=== PATIENT | female | born 1945 | race Caucasian/White ===

== ENCOUNTER 2020-12-29 10:28 | Day surgery (SDC) | payer MEDICARE, OTHER ==
[~2020-12-29] VITALS: Ht 152.4 cm; Wt 85.9 kg
[~2020-12-29 10:28] MED LIST: CITA20 PO; DYAZIDE 37.5-21 EACH PO; FLUTICASONE-SA1 EAC2 INH; IBUP200 PO; MAGNESIA; MAGNESIUM PO; PANT40 PO; POTA10T PO; PROBIOTIC1 EAC1; TRIHYD5075; VERA120 PO; VIT1CAPS12 PO
--- NOTE | 2020-12-29 13:45 | NUR ---
12/29/20 1345 Christie Sullivan NO SPECIMEN PER SURGEON. RBVO Cyndee SULLIVAN RN
--- NOTE | 2020-12-29 16:16 | NUR ---
PT A&OX4, VSS, S/P L TKA, SURGICAL DRESSING/SARAI WRAP DRY/INTACT, WIGGLES TOES/ MOVES FEET, REPOSITIONS SELF WELL. CAROLYN PO. DENIES PAIN AT THIS TIME.
[2020-12-30 04:39] LABS: BASOPHILS ABSOLUTE AUTO 0.02 K/mm3 (0.00-0.23); BASOPHILS PERCENT AUTO 0 % (0-2); EOSINOPHILS ABSOLUTE AUTO 0.03 K/mm3 (0.00-0.68); EOSINOPHILS PERCENT AUTO 0 % (0-6); Hematocrit 35.2 % (33.0-51.0); Hemoglobin 11.2 g/dL (11.5-16.0); IMMATURE GRAN ABSOLUTE AUTO 0.04 K/mm3 (0.00-0.10); IMMATURE GRAN PERCENT AUTO 1 % (0-1); LYMPHOCYTES ABSOLUTE AUTO 1.33 K/mm3 (0.84-5.20); LYMPHOCYTES PERCENT AUTO 18 % (21-46); MONOCYTES ABSOLUTE AUTO 0.84 K/mm3 (0.16-1.47); MONOCYTES PERCENT AUTO 11 % (4-13); Mean Corpuscular HGB 26.9 pg (26.0-34.0); Mean Corpuscular HGB Conc 31.8 g/dL (31.5-36.5); Mean Corpuscular Volume 85 fL (80-100); Mean Platelet Volume 10.4 fL (9.1-12.4); NEUTROPHILS ABSOLUTE AUTO 5.19 K/mm3 (1.96-9.15); NEUTROPHILS PERCENT AUTO 70 % (41-73); Platelet Count 224 K/mm3 (150-400); RDW Coefficient Variation 13.3 % (11.7-14.2); RDW Standard Deviation 41.7 fL (35.1-46.3); Red Blood Cell Count 4.16 M/mm3 (3.80-5.20); White Blood Cell Count 7.45 K/mm3 (4.00-11.30)
--- NOTE | 2020-12-30 04:50 | NUR ---
SHIFT SUMMARY POD1 L TKA WITH DR. MCGARRY. PT AOX4. VSS. PT REPORTS MILD-MOD PAIN ON LEFT KNEE. PAIN MANAGED WITH TORADOL, TYLENOL, AND 10MG KAMAR. L KNEE WITH SARAI WRAP, CDI WITH POLAR PACK IN PLACED. PT DENIES NUMBNESS AND TINGLING SENSAITON. USE BSC. VOIDING WELL WITHOUT ISSUES. TOLERATING PO INTAKE DENIES NAUSEA AND VOMITING. ABX ADMINISTERED. TOLERATING AMBULATION TO BSC. PT ALSO DENIES DIZZINESS. CALL LIGHT WITHIN REACH. WILL PROVIDE REPORT TO ONCOMING NURSE.
[2020-12-30 05:25] LABS: Bun/Creatinine Ratio 15.8 (12.0-20.0); Calcium, Blood 8.8 mg/dL (8.5-10.1); Creatinine, Blood 1.2 mg/dL (0.40-1.00); Magnesium, Blood 1.8 mg/dL (1.6-2.4); Potassium, Blood 3.3 mmol/L (3.5-5.5)
--- NOTE | 2020-12-30 06:28 | NUR ---
FOR SAFETY REASONS.
--- NOTE | 2020-12-30 11:46 | NUR ---
DISCHARGE SUMMARY PT A&OX4, VSS, VOIDING, TOLERATING PO, AMBULATING W/SBA/FWW/GB. DC INSTRUCTIONS PROVIDED. PT REP UNDERSTANDING THOSE INSTRUCTIONS INCLUDING FU WITH ORTHO SURG 2 WKS, DRESSING CHANGES, PHYSICAL THERAPY OUTPT, SHORT FREQ AMB WITH REST/ELEVATION AND ICE AT REST. PT LEFT FLOOR VIA WC WITH BROKE WORKER TO GO HOME WITH , WITH ALL PERSONAL POSSESSIONS INCLUDING DC PACKET, 2 AQUACEL; PT REP HAVING LOVENOX, PAIN MED AND ABX MEDS AT HOME. IV DC'D.
== END 2020-12-30 11:00 | disposition home or self-care (01) ==
LOC: ORSCMMR 10:28 → ORD 14:00 → SURS 15:01 → ORSCMMR 12-30 11:00
PROVIDERS: Orthopaedic Surgery
PROC: 8E0YXBZ Computer Assisted Procedure of Lower Extremity (ICD-10-PCS; principal; 2020-12-29 14:00)
PROC: 0SRD0J9 Replacement of Left Knee Joint with Synthetic Substitute, Cemented, Open Approach (ICD-10-PCS; principal; 2020-12-29 14:00)
DX: M17.12 Unilateral primary osteoarthritis, left knee (principal); I10 Essential (primary) hypertension; J44.9 Chronic obstructive pulmonary disease, unspecified; Z87.891 Personal history of nicotine dependence; Z79.899 Other long term (current) drug therapy; E66.01 Morbid (severe) obesity due to excess calories; Z68.37 Body mass index [BMI] 37.0-37.9, adult
CPT/HCPCS: 36415; 73560-LT; 80048; 83735; 85025; 97110; 97116; 97162; A9270; C1713; C1776; J0171; J0735; J1650; J1885; J2250; J2704; J2795; J3010; J3370; J7120

== ENCOUNTER 2021-10-05 11:26 | Day surgery (SDC) | payer MEDICARE, OTHER ==
[~2021-10-05] VITALS: Ht 152.4 cm; Wt 73.1 kg
--- NOTE | 2021-10-05 13:44 | NUR ---
10/05/21 1343 Jeanne Alvarez NO ANESTHESIOLOGIST INVOLVED.
== END 2021-10-05 14:48 | disposition home or self-care (01) ==
LOC: ORSCSDS 11:26
PROVIDERS: Otolaryngology
PROC: 03BT0ZX Excision of Left Temporal Artery, Open Approach, Diagnostic (ICD-10-PCS; principal; 2021-10-05 13:00)
DX: M31.6 Other giant cell arteritis (principal); J44.9 Chronic obstructive pulmonary disease, unspecified; E66.9 Obesity, unspecified; Z68.31 Body mass index [BMI] 31.0-31.9, adult; Z79.899 Other long term (current) drug therapy
CPT/HCPCS: 88305; 88313; J2250; J3010

== ENCOUNTER 2024-01-21 06:11 | Day surgery (SDC) | payer MEDICARE, OTHER ==
[~2024-01-21] VITALS: Ht 152.4 cm; Wt 81.7 kg
[2024-01-21] VITALS (10 sets, daily range): BP systolic 113–154; BP diastolic 54–106
[2024-01-21] MEDS ORDERED: CeFAZolin Sodium 2,000 MG in NS 100 ML IV SCH (06:20)
[2024-01-21] MEDS ORDERED: Lactated Ringer's 1,000 ML IV SCH (06:20)
[2024-01-21] MEDS ORDERED: GABA300 PO (06:39)
[2024-01-21] MEDS ORDERED: CeFAZolin Sodium 2,000 MG VIAL ONE (06:40)
[2024-01-21] MEDS ORDERED: NS 100 ML IV ONE (06:40)
[2024-01-21] MEDS ORDERED: Ondansetron HCl 2 MG / ML 2ML Vial ONE (07:01)
[2024-01-21] MEDS ORDERED: Phenylephrine HCl 100 MCG/ML-NS 10MLSYR (1MG/10ML) ONE (07:01)
[2024-01-21] MEDS ORDERED: FentaNYL Citrate 50 MCG/ML 2 ML Injection ONE ×2 (07:01→09:52)
[2024-01-21] MEDS ORDERED: propofoL 20 ML IV ONE (07:01)
[2024-01-21] MEDS ORDERED: Dexamethasone Sod Phos 10 MG/ML 1ML VIAL ONE (07:01)
[2024-01-21] MEDS ORDERED: Rocuronium Bromide 10 MG/ML 5ML Injection IV ONE (07:01)
[2024-01-21] MEDS ORDERED: Bupivacaine 0.5% HCl 5 MG/ML 30MLVIAL ONE (07:04)
--- NOTE | 2024-01-21 07:06 | NUR ---
History, Chart, Medications and Allergies reviewed before start of procedure. Pre-Op teaching done. Pt verbalizes understanding. Ambulatory in Day Surgery WITH STEADY GAIT. PT BELONGINGS PLACED UNDER GURNEY.
[2024-01-21] MEDS ORDERED: Sugammadex Sodium 200 MG/2ML SDV (100 MG/ML) ONE (07:41)
[2024-01-21] MEDS ORDERED: ePHEDrine Sulfate 50 MG/ML 1ML Injection ONE (07:47)
--- NOTE | 2024-01-21 08:35 | NUR ---
01/21/24 0835 Merle Chen ISOVUE 300 (30MLS) POURED ONTO STERILE FIELD FOR USE DURING CHOLANGIOGRAM
[2024-01-21] MEDS ORDERED: HYDROcodone 5-APAP 325 TAB PO PRN (09:30)
--- NOTE | 2024-01-21 11:12 | NUR ---
Discharge instructions reviewed with patient. Patient verbalizes understanding. Copy given to patient to take home. Dressings c/d/i, prescription given to pt's helper driver. Up to bathroom to void, stable gait. Patient States Post-Procedure ride home has been arranged. Discharged via wheelchair to private car for ride home.
== END 2024-01-21 11:15 | disposition home or self-care (01) ==
LOC: ORSCMMR 06:11 → ORD 07:30 → ORSCMMR 11:15
PROVIDERS: Surgery
PROC: 0FT44ZZ Resection of Gallbladder, Percutaneous Endoscopic Approach (ICD-10-PCS; principal; 2024-01-21 07:30)
PROC: BF001ZZ Plain Radiography of Bile Ducts using Low Osmolar Contrast (ICD-10-PCS; principal; 2024-01-21 07:30)
DX: K80.10 Calculus of gallbladder with chronic cholecystitis without obstruction (principal); I12.9 Hypertensive chronic kidney disease with stage 1 through stage 4 chronic kidney disease, or unspecified chronic kidney disease; N18.4 Chronic kidney disease, stage 4 (severe); J44.9 Chronic obstructive pulmonary disease, unspecified; K21.9 Gastro-esophageal reflux disease without esophagitis; Z79.899 Other long term (current) drug therapy; Z87.891 Personal history of nicotine dependence
CPT/HCPCS: 74300; 88304; A9270; C1729; J0690; J1100; J2371; J2405; J2704; J3010; J7120

== ENCOUNTER → 2024-08-19 | Outpatient (CLI) | payer MEDICARE, OTHER ==
[~2024-08-19] MED LIST changes: +GABA300 PO
[2024-08-19 12:58] LABS: BASOPHILS ABSOLUTE AUTO 0.02 K/mm3 (0.00-0.23); BASOPHILS PERCENT AUTO 0 % (0-2); EOSINOPHILS ABSOLUTE AUTO 0.17 K/mm3 (0.00-0.68); EOSINOPHILS PERCENT AUTO 3 % (0-6); Hematocrit 44.1 % (33.0-51.0); Hemoglobin 14.5 g/dL (11.5-16.0); IMMATURE GRAN ABSOLUTE AUTO 0.02 K/mm3 (0.00-0.10); IMMATURE GRAN PERCENT AUTO 0 % (0-1); LYMPHOCYTES ABSOLUTE AUTO 1.38 K/mm3 (0.84-5.20); LYMPHOCYTES PERCENT AUTO 22 % (21-46); MONOCYTES ABSOLUTE AUTO 0.52 K/mm3 (0.16-1.47); MONOCYTES PERCENT AUTO 8 % (4-13); Mean Corpuscular HGB 27.2 pg (26.0-34.0); Mean Corpuscular HGB Conc 32.9 g/dL (31.5-36.5); Mean Corpuscular Volume 83 fL (80-100); Mean Platelet Volume 10.6 fL (9.1-12.4); NEUTROPHILS ABSOLUTE AUTO 4.17 K/mm3 (1.96-9.15); NEUTROPHILS PERCENT AUTO 66 % (41-73); Platelet Count 275 K/mm3 (150-400); RDW Coefficient Variation 14.4 % (11.7-14.2); RDW Standard Deviation 42.8 fL (35.1-46.3); Red Blood Cell Count 5.33 M/mm3 (3.80-5.20); White Blood Cell Count 6.28 K/mm3 (4.00-11.30)
[2024-08-19 13:49] LABS: Alanine Aminotransfer (ALT/SGP 17 U/L (12-78); Albumin, Blood 3.6 g/dL (3.4-5.0); Alk Phos 81 U/L (50-136); Anion Gap 9 mmol/L (3-11); Aspartate Aminotrans (AST/SGOT 17 U/L (12-37); Bilirubin, Total 0.6 mg/dL (0.1-1.0); Blood Urea Nitrogen 25 mg/dL (8-24); Bun/Creatinine Ratio 17.6 (12.0-20.0); CHOL/HDL RATIO 2.8; CO2, Blood 29 mmol/L (21-32); Calcium, Blood 9.4 mg/dL (8.5-10.1); Chloride, Blood 102 mmol/L (98-108); Cholesterol 215 mg/dL (50-200); Creatinine, Blood 1.42 mg/dL (0.40-1.00); Globulin, Blood 3.6 g/dL (2.2-4.0); Glomerular Filtration Rate 37 (60-); Glucose, Blood 80 mg/dL (70-99); HDL Cholesterol 78 mg/dL (>39); LDL/HDL RATIO 1.6; Low Density Lipoprotein Chol 124 mg/dL (0-110); Potassium, Blood 3.3 mmol/L (3.5-5.5); Sodium, Blood 137 mmol/L (136-145); Total Protein, Blood 7.2 g/dL (6.4-8.2); Triglycerides 64 mg/dL (30-160); Very Low Density Lipoprot Chol 12 mg/dL (6-32)
== END ==
LOC: LAB 11:39 → LAB SHORT 11:39
PROVIDERS: Family Medicine
DX: E04.2 Nontoxic multinodular goiter (principal); I10 Essential (primary) hypertension; R73.01 Impaired fasting glucose
CPT/HCPCS: 80053; 80061; 83036; 84443; 85025

== ENCOUNTER → 2025-04-27 | Outpatient (CLI) | payer MEDICARE, OTHER | LOC: LAB 10:36 → LAB SHORT 10:36 | DX: N39.0 Urinary tract infection, site not specified (principal) | CPT/HCPCS: 87086 ==